=== PATIENT | male | born 1960 | race Caucasian/White ===

== ENCOUNTER 2018-04-20 13:41 | Emergency (ER) | payer BC ==
[2018-04-20 14:17] VITALS: BP 143/85
--- NOTE | 2018-04-20 16:37 | UC ---
Ear Complaint HPI - HPI Summary HPI Summary: states he woke up this morning with pain and redness behind and on left earlobe. Denies any trauma, fever or chills, denies pruritus. Also states that for the past month he has right ear clogged. Patient states a month ago he instilled some peroxide but it did not work. - History of Current Complaint Chief Complaint: UCEar Stated Complaint: EAR PAIN Time Seen by Provider: 04/20/18 16:17 Hx Obtained From: Patient Onset/Duration: Sudden Onset, Lasting Hours Severity Initially: Mild Severity Currently: Moderate Pain Intensity: 0 Aggravating Factors: Nothing Alleviating Factors: Nothing - Allergies/Home Medications Allergies/Adverse Reactions: Allergies Allergy/AdvReac Type Severity Reaction Status Date / Time No Known Allergies Allergy Verified 04/20/18 14:14 Home Medications: Home Medications Aspirin 81 mg CHEW TAB* [Aspirin Low Dose TAB*] 81 mg PO DAILY 04/20/18 [ History Confirmed 04/20/18] Phenytoin CAP(*) [Dilantin CAP(*)] 200 mg PO BID 04/20/18 [History Confirmed 08/28] Varenicline (NF) [Chantix 1 MG TAB (NF)] 1 tab PO BID 04/20/18 [History Confirmed 04/20/18] PMH/Surg Hx/FS Hx/Imm Hx Neurological History: Seizures - Surgical History Surgical History: Yes Surgery Procedure, Year, and Place: brain aneurysm 2016 - Social History Alcohol Use: None Substance Use Type: None Smoking Status (MU): Never Smoked Tobacco Review of Systems Constitutional: Negative ENT: Ear Ache All Other Systems Reviewed And Are Negative: Yes Physical Exam Triage Information Reviewed: Yes Appearance: Well-Appearing, No Pain Distress, Well-Nourished Vital Signs: Initial Vital Signs Temp 98.3 F 04/20/18 14:11 Pulse 64 04/20/18 14:11 Resp 16 04/20/18 14:11 BP 143/85 04/20/18 14:11 Pulse Ox 98 04/20/18 14:11 Vital Signs Reviewed: Yes Eyes: Positive: Conjunctiva Clear - TM normal left. Right cerumen. Left earlobe with erythema and mild edema. Superficial escoriation on earlobe. Mild induration in the mastoid area. No fluctuation upon palpation. Mild tenderness upon palpation. No cervical lymph node enlargement ENT: Positive: Hearing grossly normal, Pharynx normal, Uvula midline Neck: Positive: Supple, Nontender, No Lymphadenopathy Respiratory: Positive: Chest non-tender, Lungs clear, Normal breath sounds, No respiratory distress Cardiovascular: Positive: RRR, No Murmur, Pulses Normal, Brisk Capillary Refill Ear Complaint Course/Dx - Course Course Of Treatment: cellulitis of left earlobe and adjacent area. Start antibiotic as prescribed and f/u with PCP. Monitor BP with PCP. Patient refused ear irrigation on right ear. - Differential Dx/Diagnosis Provider Diagnoses: Elevated BP without diagnosis of HTN. Cellulitis left earlobe. Cerumen impaction Discharge - Sign-Out/Discharge Documenting (check all that apply): Discharge/Admit/Transfer - Discharge Plan Condition: Stable Disposition: HOME Prescriptions: Sulfamethox/Trimethoprim DS* [Bactrim DS 800/160 TAB*] 1 tab PO BID 7 Days #14 tab Patient Education Materials: Cellulitis (ED), Cerumen Impaction (ED) Referrals: Pravin Neal MD [Primary Care Provider] - Additional Instructions: warm compresses locally - Billing Disposition and Condition Condition: STABLE Disposition: Home
== END 2018-04-20 16:33 | disposition home or self-care (01) ==
LOC: UCCORT 13:41
DX: H60.12 Cellulitis of left external ear (principal); H61.21 Impacted cerumen, right ear; R03.0 Elevated blood-pressure reading, without diagnosis of hypertension; R56.9 Unspecified convulsions; Z79.899 Other long term (current) drug therapy
CPT/HCPCS: 99202; G0463

== ENCOUNTER 2019-04-22 13:34 | Emergency (ER) | payer BC, OTHER ==
[2019-04-22 13:57] VITALS: BP 164/99
--- NOTE | 2019-04-22 14:23 | UC ---
Eye Complaint HPI - HPI Summary HPI Summary: 59-year-old male presents with complaints of bilateral eye redness, itching, and purulent discharge. States symptoms began one week ago in the right eye a couple of days moved to the left eye as well. His was waking up in the morning with his eyes crusted shut. Denies any fever, chills, nasal congestion, runny nose, ear pain, sore throat, cough, visual disturbances, or photophobia. - History of Current Complaint Chief Complaint: UCEye Stated Complaint: RT EYE COMPLAINT Time Seen by Provider: 04/22/19 14:15 Hx Obtained From: Patient Pain Intensity: 0 - Allergies/Home Medications Allergies/Adverse Reactions: Allergies Allergy/AdvReac Type Severity Reaction Status Date / Time No Known Allergies Allergy Verified 04/22/19 13:57 PMH/Surg Hx/FS Hx/Imm Hx Neurological History: Seizures - Surgical History Surgical History: Yes Surgery Procedure, Year, and Place: brain aneurysm 2016 - clipped - Family History Known Family History: Positive: Non-Contributory - Social History Occupation: Unemployed Lives: Alone Alcohol Use: None Substance Use Type: Marijuana Substance Use Comment - Amount & Last Used: occasional Smoking Status (MU): Heavy Every Day Tobacco Smoker Amount Used/How Often: 1 ppd Review of Systems All Other Systems Reviewed And Are Negative: Yes Constitutional: Negative: Fever, Chills Skin: Negative: Rash Eyes: Positive: Drainage, Eye Redness. Negative: Blurred Vision, Diplopia, Photophobia ENT: Negative: Sore Throat, Ear Ache, Nasal Discharge, Sinus Congestion, Sinus Pain/Tenderness Respiratory: Negative: Shortness Of Breath, Cough Cardiovascular: Positive: Negative Gastrointestinal: Positive: Negative Genitourinary: Positive: Negative Musculoskeletal: Positive: Negative Neurological: Positive: Negative Is Patient Immunocompromised?: No Physical Exam - Summary Physical Exam Summary: GENERAL APPEARANCE: Well developed, well nourished, alert and cooperative, and appears to be in no acute distress. EYES: Bilateral conjunctival erythema with copius purulent drainage. Small noninflamed skin tag noted to the inner upper right eyelid. PERRL, EOM intact. Vision is grossly intact. EARS: External auditory canals and tympanic membranes clear, hearing grossly intact. NOSE: No nasal discharge. THROAT: Pharynx normal. No tonsilar inflammation, swelling, exudate, or lesions. Uvula midline. Oral cavity normal. Teeth and gingiva in good general condition. NECK: Neck supple, non-tender without lymphadenopathy. CARDIAC: Normal S1 and S2. No S3, S4 or murmurs. Rhythm is regular. There is no peripheral edema, cyanosis or pallor. Extremities are warm and well perfused. Capillary refill is less than 2 seconds. Peripheral pulses intact. LUNGS: Clear to auscultation without rales, rhonchi, wheezing or diminished breath sounds. ABDOMEN: Positive bowel sounds. Soft, nondistended, nontender. No guarding or rebound. No masses or hepatosplenomegally. MUSKULOSKELETAL: ROM intact to all extremities. No joint erythema or tenderness. Normal muscular development. Normal gait. SKIN: Skin normal color, texture and turgor with no lesions or eruptions. Triage Information Reviewed: Yes Vital Signs: Initial Vital Signs Temp 98 F 04/22/19 13:50 Pulse 103 04/22/19 13:50 Resp 18 04/22/19 13:50 BP 164/99 04/22/19 13:50 Pulse Ox 96 04/22/19 13:50 Vital Signs Reviewed: Yes Eye Complaint Course/Dx - Course Course Of Treatment: 59-year-old male presents with complaints of bilateral eye redness, itching, and purulent discharge. States symptoms began one week ago in the right eye a couple of days moved to the left eye as well. His was waking up in the morning with his eyes crusted shut. Denies any fever, chills, nasal congestion, runny nose, ear pain, sore throat, cough, visual disturbances, or photophobia. Afebrile. Hypertensive otherwise vital signs stable. Patient had bilateral conjunctival erythema with a copious amount of purulent drainage from the eyes. Small noninflamed skin tag noted to the inner upper right eyelid. Remainder of exam was unremarkable. We'll treat for a bilateral bacterial conjunctivitis with Polytrim 1 drop 4 times a day 7 days. He is to follow-up with his primary care provider in 3-5 days if symptoms are not improving. Anticipatory guidance and warning symptoms were reviewed with the patient. Verbalizes understanding and agrees with plan of care. - Differential Dx/Diagnosis Differential Diagnosis/HQI/PQRI: Conjunctivitis, Corneal Abrasion, Periorbital Cellulitis, Orbital Cellulitis Provider Diagnosis: Bacterial conjunctivitis of both eyes Discharge - Sign-Out/Discharge Documenting (check all that apply): Patient Departure All imaging exams completed and their final reports reviewed: No Studies - Discharge Plan Condition: Stable Disposition: HOME Prescriptions: Polymyx/Trimethoprim OPTH* [Polytrim OPHTH*] 1 drop BOTH EYES QID 7 Days #1 btl Patient Education Materials: Conjunctivitis (ED) Referrals: Pravin Neal MD [Primary Care Provider] - 3 Days Additional Instructions: Start Polytrim opthalmic 1 drop both eyes 4 times a day for 7 days. Do not wear your contacts until you have completed the treatment. Throw out the old pair and use a new pair once you have completed you treatment. To avoid reinfection or spreading infection: * Use washcloths and towels once then launder. * Do not share washcloths or towels with others. * Change your pillow case each morning until you have finished treatment. * You should throw out any eye makeup, especially mascara, and use a new one once you have finished treatment. Follow up here or with your primary care provider in 3 days if no improvement. Seek immediate medical attention in the emergency room if you develop fever greater than 100.5 F, have pain or swelling of the eye, visual disturbances, loss of vision, or any worsening of symptoms. - Billing Disposition and Condition Condition: STABLE Disposition: Home
== END 2019-04-22 14:39 | disposition home or self-care (01) ==
LOC: UCCORT 13:34
DX: H10.89 Other conjunctivitis (principal); B96.89 Other specified bacterial agents as the cause of diseases classified elsewhere
CPT/HCPCS: 99212; G0463

== ENCOUNTER 2019-05-09 11:06 | Emergency (ER) | payer OTHER ==
[2019-05-09 11:42] VITALS: BP 154/75
--- NOTE | 2019-05-09 12:06 | UC ---
General HPI - HPI Summary HPI Summary: pt is c/o a rash on his scalp by the R ear x 2 weeks. he thinks it began after a haircut. he denies any injury to skin during that haircut. + itching. he has applied iodine and neosporin which may have helped a little. he denies any other rash or joint pain. - History of Current Complaint Chief Complaint: UCSkin Stated Complaint: SKIN COMPLAINT Time Seen by Provider: 05/09/19 11:53 Hx Obtained From: Patient Pain Intensity: 0 - Allergy/Home Medications Allergies/Adverse Reactions: Allergies Allergy/AdvReac Type Severity Reaction Status Date / Time No Known Allergies Allergy Verified 05/09/19 11:35 PMH/Surg Hx/FS Hx/Imm Hx Neurological History: Seizures - Surgical History Surgical History: Yes Surgery Procedure, Year, and Place: brain aneurysm 2016 - clipped - Family History Known Family History: Positive: Non-Contributory - Social History Alcohol Use: Rare Substance Use Type: Marijuana Substance Use Comment - Amount & Last Used: occasional Smoking Status (MU): Heavy Every Day Tobacco Smoker Amount Used/How Often: 1 ppd Review of Systems All Other Systems Reviewed And Are Negative: No Constitutional: Negative: Fever, Chills Skin: Positive: Rash Musculoskeletal: Negative: Arthralgia, Edema Physical Exam Triage Information Reviewed: Yes Appearance: Well-Appearing Vital Signs: Initial Vital Signs Temp 97.7 F 05/09/19 11:36 Pulse 59 05/09/19 11:36 Resp 18 05/09/19 11:36 BP 154/75 05/09/19 11:36 Pulse Ox 98 05/09/19 11:36 Vital Signs Reviewed: Yes Eyes: Positive: Conjunctiva Clear ENT: Negative: Nasal drainage Neck: Positive: Supple Respiratory: Positive: No respiratory distress Musculoskeletal: Positive: ROM Intact, No Edema Neurological: Positive: Alert Psychological: Positive: Age Appropriate Behavior Skin Exam: Normal Skin: Positive: Rashes - 4cm patch of scaley plaque on scalp behind the R ear. no fracturing to the hair. Course/Dx - Differential Dx - Multi-Symptom Differential Diagnoses: Other - seborrhea vs fungal vs psoriasis. will tx with fungal shampoo and refer to dermatology. no concern for bacterial infection. - Diagnoses Provider Diagnosis: Scaly patch rash Discharge - Sign-Out/Discharge Documenting (check all that apply): Patient Departure All imaging exams completed and their final reports reviewed: No Studies - Discharge Plan Condition: Stable Disposition: HOME Prescriptions: Ketoconazole [Nizoral A-D] 200 ml TP DAILY 30 Days #1 shampoo Patient Education Materials: Seborrheic Dermatitis (DC) Referrals: Teo Tay MD [Medical Doctor] - As Soon As Possible Additional Instructions: ASK TO BE SEEN IN THE [facility] OFFICE. - Billing Disposition and Condition Condition: STABLE Disposition: Home
== END 2019-05-09 12:28 | disposition home or self-care (01) ==
LOC: UCCORT 11:06
DX: R21 Rash and other nonspecific skin eruption (principal); F17.210 Nicotine dependence, cigarettes, uncomplicated
CPT/HCPCS: 99212; G0463